=== PATIENT | female | born 1995 | race Caucasian/White ===

== ENCOUNTER 2017-01-16 15:10 | Emergency (ER) | payer OTHER ==
[~2017-01-16] VITALS: Ht 165.1 cm; Wt 59.0 kg
--- NOTE | 2017-01-16 15:20 | NUR ---
PT C/O LOWER ABDOMINAL PAIN, DYSURIA X LAST NIGHT. PLACED ON MONITOR. VSS
--- NOTE | 2017-01-16 16:30 | NUR ---
URINE SAMPLE COLLECTED SENT TO LAB
[2017-01-16 16:44] LABS: APPEARANCE,URINE Clear (CLEAR); BILIRUBIN,URINE Negative (NEGATIVE); BLOOD, URINE Trace-intact Ery/uL (NEGATIVE); COLOR,URINE Yellow (YELLOW); KETONES,URINE Negative (NEGATIVE); LEUKOCYTE ESTERASE ,URINE Negative (NEGATIVE); NITRITE, URINE Negative (NEGATIVE); PROTEIN,URINE Negative (NEGATIVE); UGLUCOSE Negative (NEGATIVE); UROBILINOGEN,URINE 0.2 EU/dL (0.2)
[2017-01-16 17:08] LABS: ADD URINE CULTURE YES; BACTERIA,URINE Many /HPF (None Seen); RBC,URINE 0-2 /HPF (0-2); SQUAMOUS EPITHELIAL CELL,UR Many /HPF (None Seen); WBC,URINE 0-2 /HPF (0-3)
--- NOTE | 2017-01-16 17:38 | NUR ---
Patient discharged to home in stable condition. Written and verbal after care instructions given. Patient verbalizes understanding of instruction. Prescription given to patient.
[2017-01-16 17:39] VITALS: BP 130/80
== END 2017-01-16 17:40 | disposition home or self-care (01) ==
LOC: ER 15:11
DX: R30.0 Dysuria (principal); R10.30 Lower abdominal pain, unspecified; F10.20 Alcohol dependence, uncomplicated; Z87.442 Personal history of urinary calculi
CPT/HCPCS: 81001; 84703; 87086; 99284; A4606; Z7610; 81000-TC